=== PATIENT | male | born 1955 | race Caucasian/White ===

== ENCOUNTER 2025-05-26 09:30 | Inpatient (IN) | payer OTHER ==
[2025-05-19 11:02] LABS: MEAN PLATELET VOLUME 7.9 FL (7.4-10.4); PRE OP HEMATOCRIT 33.3 % (42.0-52.0); PRE OP PLATELET COUNT 220 X10'3 (140-440); PRE OP WHITE BLOOD COUNT 5.6 10'3 (4.8-10.8); RED CELL DISTRIBUTION WIDTH 13.9 % (11.5-14.5)
[2025-05-19 11:04] LABS: PRE OP HEMOGLOBIN 11.0 g/dL (14.0-17.9)
[2025-05-19 11:31] LABS: CREATININE 1.36 MG/DL (0.60-1.10); PRE OP ALT 16 U/L (30-65); PRE OP ANION GAP 8 (8-16); PRE OP AST 14 U/L (10-37); PRE OP BILIRUB, TOTAL 0.4 MG/DL (0.0-1.0); PRE OP GLUCOSE 112 MG/DL (70-104); PRE OP POTASSIUM 4.5 MMOL/L (3.4-5.1); PRE OP SODIUM 142 MMOL/L (135-145); TOTAL CARBON DIOXIDE 25.9 MMOL/L (24-32); eGFR 52 ML/MIN
[~2025-05-26] VITALS: Ht 182.9 cm; Wt 114.1 kg
[2025-05-26] VITALS (17 sets, daily range): BP systolic 109–172; BP diastolic 51–87; PULSE 51–69; RESP 13–18; TEMP 97.7–98.6; O2SAT 90–100
[2025-05-26] MEDS: ceFAZolin 2gm/dext,iso 50mL 50 ML IV ONE (05:30)
[2025-05-26] MEDS: tranexamic acid 1gm/0.7% sal. 100 ML IV ONE (05:30)
[~2025-05-26 09:30] MED LIST: AMLO10TA13 PO; CARV6.253 PO; ISOS30TA84 PO; LEVO150C5 PO; METF-438 PO; PIOG30TA72 PO; ROSU20TA98 PO
[2025-05-26] MEDS: ringers solution, lacted 1,000 ML IV SCH (10:04)
[2025-05-26] MEDS: VANCOMYCIN/H2O 1.5g/300mL PB 300 ML IV ONE (10:05)
[2025-05-26] MEDS ORDERED: vancomycin 1,000mg inj ONE (11:05)
[2025-05-26] MEDS ORDERED: tetracaine 1% (10mg/ml) pres. free inj. ONE (12:35)
[2025-05-26] MEDS ORDERED: MIDAZolam 1mg/ml 10ml vial ONE (12:46)
[2025-05-26] MEDS ORDERED: fentaNYL/PF 50MCG/1 ML 2ML syringe ONE (12:46)
[2025-05-26] MEDS ORDERED: propofol 10mg/ml 20ml vial IV ONE (13:27)
[2025-05-26] MEDS ORDERED: ROPIVAcaine 0.2% (10 MG/5 ML) BOLUS INJECTION ADDCANAL PRN (13:45)
[2025-05-26] MEDS ORDERED: HYDROmorphone/PF 0.2 MG/ML SYRINGE IV PRN (13:45)
[2025-05-26] MEDS ORDERED: ringers solution, lacted 1,000 ML IV SCH (13:45)
[2025-05-26] MEDS ORDERED: labetalol 20mg/4ml (5mg/ml) syringe IV PRN (13:45)
[2025-05-26] MEDS ORDERED: ondansetron/PF 4mg/2ml inj IV PRN ×3 (13:45→19:20)
[2025-05-26] MEDS ORDERED: hydrALAZINE 20mg/ml inj. IV PRN (13:45)
[2025-05-26] MEDS ORDERED: ROPIVAcaine 0.5% (5mg/ml) 30ml vial ONE ×2 (16:01)
[2025-05-26] MEDS ORDERED: oxyCODONE IR 5mg (immed. release) tablet PO PRN (16:50)
[2025-05-26] MEDS ORDERED: bisacodyl 10mg suppository rectal RC PRN (16:50)
[2025-05-26] MEDS ORDERED: HYDROmorphone inj. 0.5 MG/0.5 ML DISP.SYRIN IV PRN (16:50)
[2025-05-26] MEDS ORDERED: magnesium hydroxide 30ml (MOM) UD suspension PO PRN ×2 (16:50→19:20)
[2025-05-26] MEDS ORDERED: PCA WASTE DOCUMENTATION 1 MG ML MC SCH (16:50)
[2025-05-26] MEDS ORDERED: HYDROmorph/NS 0.2 mg/ml PCA 100 ML IV SCH ×2 (17:00→17:53)
[2025-05-26] MEDS: ROPIVAcaine 0.2%/PF PUMP/bolus 545 ML ADDCANAL SCH (17:07)
--- NOTE | 2025-05-26 17:07 | OPERATIVE REPORT ---
Operative Report Providers to CC ~ Date of Procedure: May 26, 2025 Pre-Operative Diagnosis: Primary osteoarthritis left knee Post-Operative Diagnosis SAME as PRE-Op Procedure Performed Left total knee arthroplasty hybrid fixated tibial component with cement Press- Fit femur cement fixation of the patella Surgeon: Karly Horta MD Edging Machine Catcher Dr. Salas Law MD Anesthesiologist: Tavon Swenson Type of Anesthesia: Other (Adductor canal block and I pack block), Spinal Findings: Severe grade 4 degenerative changes tricompartmental Complications None Prosthetics\Implants used: The pew knee system attune femoral for code cruciate retaining size nine. Attune patella size 38 medialized anatomic. Attune tibial base plate fixed bearing size nine cemented with PMMA antibiotic. Attune tibial insert medial stabilize size nine 10 mm thick. 1 g of vancomycin powder Estimated Blood Loss: 200-300 mL Specimen Removed: Degenerative bone meniscal and cruciate tissues Description of Procedure: This patient was taken to the operating room after I obtained informed consent at the [facility] holding room. I discussed with this patient previously as well as perioperatively the indications risks benefits limitations potential complications of the surgery to his understanding and agreement. I signed his left knee and is eager to proceed with surgery. He was given intravenous antibiotics for prophylaxis per protocol. Once in the operating room he was given a spinal anesthetic by anesthesiologist then transferred once this had been completed to the operating room table and placed in a supine position. His right leg was placed in an SCD devices left leg was placed in a well-padded upper thigh tourniquet and prepped and draped in usual sterile orthopaedic fashion. Esmarch was placed and I and pedal leg amaro was used tourniquet was insufflated and the case was begun. The knee was wrapped in Ioban skin protection. Anterior incision measured approximately 7-8 inches medial parapatellar approach was accomplished without difficulty to immobilize the knee this was then inverted and found to have a severe grade 4 degenerative changes of the articular surfaces of the patella. An osteotomy using a freehand technique was used to remove the amount of articular cartilage and thickness to be equal to the implant. Once this was accomplished in his patellar skin was placed over this to protect the patellar surface and subluxed laterally allowing the knee to be open to flexion to expose the femoral condyles. The ortho aligned system was used to aligned the knee to neutral position extension flexion was checked with a tension diameter and found to be equal to the extension gap of 10 mm trial components were now placed into the knee the knee was sized to a size nine on the femoral size and on the tibial side trial components fit nicely in the new stable throughout a full range of motion with the patella tracking centrally. The tibial component was now prepared with a for the keel and cemented into place allowed to fixate for 15 minutes before moving to the femoral component. Femoral component was Press-Fit component this was impacted into place and found to be quite stable. Patellar component was now cement cemented into place aligned 15 minutes to have this cure and definitive 10 mm polyethylene insert was placed in the knee after meticulous care was used to remove any and all excess cement and make sure there was no soft tissue entrapment on the tibial surface. The knee was taken through a range of motion and found to be stable in full extension and flexion. Tourniquet was now released hemostasis was achieved with electrocautery which was also done during the approach a medium size Hemovac drain was placed in the lateral gutter exited out proximally and laterally to close suction thrombin spray was used to assist with hemostasis and then the vancomycin powder was placed in the knee for prophylaxis. Medial parapatellar approach was closed with interrupted sutures simple and [id number] sutures of 2. FiberWire. Subcuticular closure was accomplished with 2-0 Vicryl interrupted skin was closed with skin yamilex silver dressing was applied island dressing was applied after that. The patient was now handed over to the anesthesiologist for a IPAP block and a adductor canal block with on Q pump. Patient was then transferred to the recovery room in stable condition good distal pulses had returned to the extremity and good capillary refill to the toes. There were no apparent perioperative complications Counts repoted as correct: Yes KARLY HORTA MD May 26, 2025 17:07
[2025-05-26] MEDS: HYDROmorphone/PF 0.2 MG/ML SYRINGE IV PRN (17:19)
[2025-05-26] MEDS: morphine 4 MG/ML inj SYRINge IV PRN (17:38)
[2025-05-26] MEDS: potassium Cl 20mEq in NS 1,000 ML IV SCH (18:49)
[2025-05-26] MEDS ORDERED: potassium Cl 20 mEq SR tablet PO PRN ×2 (19:20)
[2025-05-26] MEDS ORDERED: mag hydrox/Alum hydrox/simeth 30ml oral suspension PO PRN (19:20)
[2025-05-26] MEDS ORDERED: magnesium sulf-water 2g/50mL 50 ML IV PRN (19:20)
[2025-05-26] MEDS ORDERED: magnesium Cl slow-release 64mg tablet PO PRN (19:20)
[2025-05-26] MEDS ORDERED: magnesium sulf-water 4G/100mL 100 ML IV PRN (19:20)
[2025-05-26] MEDS ORDERED: potassium Cl 40MEQ/1/2NS 520ml 520 ML IV PRN (19:20)
[2025-05-26] MEDS: tranexamic acid inj. 1,140 MG in normal saline 100ml IV soln 88.6 ML IV ONE (19:38)
--- NOTE | 2025-05-26 19:39 | CONSULTATION REPORT - RESIDENT ---
Consult Providers to CC Resident Creating Document: GLYNNJAKOB RES History of Present Illness Reason for Admit\Complaint: Postop management History of Present Illness This is a 70-year-old male with a history of hypertension, diabetes, hypothyroidism, hyperlipidemia, obstructive sleep apnea, CAD s/p stent placement, osteoarthritis was admitted by Dr. Remy for elective left total knee arthroplasty. Patient postoperative course was uncomplicated and patient is hemodynamically stable. He complains of pain 6/10, currently being managed with morphine, Dilaudid and Percocet. He denies any other complaints. He takes amlodipine, carvedilol, levothyroxine, metformin, pioglitazone, rosuvastatin at home. Ordered repeat labs and restarted home medications. Allergies: Coded Allergies: No Known Allergies (Unverified , 05/19/25) Home Medications Home Medications Active Reported Isosorbide Mononitrate Er (Isosorbide Mononitrate) 30 Mg Tab.er.24h 1 Tab PO QAM Metformin HCl 1,000 Mg Tablet 1 Tab PO Q12H 30 Days Carvedilol 6.25 Mg Tablet 1 Tab PO Q12H 30 Days Pioglitazone (Pioglitazone Hcl) 30 Mg Tablet 1 Tab PO DAILY 30 Days Rosuvastatin Calcium 20 Mg Tablet 1 Tab PO HS 30 Days Amlodipine Besylate 10 Mg Tablet 1 Tab PO HS 30 Days Levothyroxine (Levothyroxine Sodium) 150 Mcg Capsule 1 Cap PO DAILY 30 Days Past Medical History Past Medical History hypertension, diabetes, hypothyroidism, hyperlipidemia, obstructive sleep apnea, CAD s/p stent placement, osteoarthritis Past Surgical History Surgical History Comment Orthopedic surgeries ROS ROS Reviewed in full and negative except for the pertinent positives in HPI Exam Vitals: Vital Signs Date Time Temp Pulse Resp B/P (MAP) Pulse Ox O2 Delivery O2 Flow Rate FiO2 05/26/25 19:05 14 05/26/25 18:00 53 109/61 (77) 94 Room Air 0.0 05/26/25 17:00 97.9 General: General: Awake and Alert, no acute distress. HEENT: Conjunctiva pink, Sclera clear, Mucus Membranes moist Neck: Supple without masses and tenderness. Resp: Unlabored. Equal breath sounds bilaterally. Heart: Regular rhythm, normal S1 and S2, no rub, murmur or gallop, muffled heart sounds. Abdomen: Soft and non tender no organomegaly. Normal bowel sounds x4 quadrant normoactive. No guarding or rigidity. Extremities: Left knee covered with dressing. no swelling, nontender. No cyanosis,clubbing or edema. LIQUOR RECTIFIER: No gross motor or sensory abnormalities. Skin: Warm and Dry. Additional Plan Left knee osteoarthritis severe grade 4 degenerative changes S/p left total knee arthroplasty Follow up with repeat CBC, CMP. Estimated blood loss was 300 mL. Currently on IV vancomycin b.i.d. and cefazolin t.i.d. scheduled Pain management with celecoxib, morphine, Dilaudid, Percocet as needed. Laxatives for constipation as needed Continue wound care Regular diet Physical therapy with non weight-bearing precautions Hypertension Type 2 diabetes Hyperlipidemia CAD s/p stent placement Obstructive sleep apnea Continue home medications rosuvastatin HS, metformin b.i.d., pioglitazone, levothyroxine, amlodipine, isosorbide mononitrate, carvedilol 6.25 mg b.i.d.. Code Status: Full code DVT Prophylaxis: Lovenox Analgesia/Sedation: Percocet, morphine p.r.n. Lines/Tubes: PIV Gi Prophylaxis: None Nutrition: Regular diet PT: Yes Prognosis: Fair Disposition: Continue care in ortho floor Jakob Bee MD Internal Medicine Resident PGY-2 Patient seen and evaluated with HIPPA compliant AV device Agree with the plan as discussed with the resident Tomi Segal MD Date of Service: May 26, 2025 Billing Provider: TOMI SEGAL MD, DEEPIKA BANDI, RES May 26, 2025 19:39 TOMI SEGAL MD May 27, 2025 03:12
--- NOTE | 2025-05-26 19:41 | RADIOLOGY REPORT ---
EXAM: DI KNEE LIMITED (AP/LAT) CLINICAL HISTORY: Postop LEFT KNEE COMPARISON: None TECHNIQUE: DI KNEE LIMITED (AP/LAT) Findings/Impression: 2 views of the left knee. There is no evidence of an acute fracture, dislocation, blastic, or lytic lesions. Left total knee arthroplasty with postsurgical changes.
[2025-05-26] MEDS: K and/or MAG REPLACEMENT MC SCH (20:00)
[2025-05-26 20:43] LABS: APTT 27 SECONDS (22-32); INR 1.1 INR
[2025-05-26 20:51] LABS: CREATININE 1.02 MG/DL (0.60-1.10); PRO BRAIN NATRIURETIC PEPTIDE 568 PG/ML (0-125); TOTAL CARBON DIOXIDE 23.6 MMOL/L (24-32); eCRCL 73 ML/MIN; eGFR 72 ML/MIN
[2025-05-26 21:05] LABS: MEAN PLATELET VOLUME 7.9 FL (7.4-10.4); RED CELL DISTRIBUTION WIDTH 13.0 % (11.5-14.5)
[2025-05-26] MEDS: vancomycin/NS 1 GM ADD-VANTAGE 250 ML IV SCH (21:43)
[2025-05-26] MEDS: carvedilol 6.25mg tablet PO SCH (21:45)
[2025-05-26] MEDS: docusate sod 100mg capsule PO SCH (21:45)
[2025-05-26] MEDS: ceFAZolin/D5W- 1GM premix 50 ML IV SCH (23:49)
[2025-05-27] MEDS: oxyCODONE IR 5mg (immed. release) tablet PO PRN (04:57)
[2025-05-27 05:26] LABS: MEAN PLATELET VOLUME 8.7 FL (7.4-10.4); RED CELL DISTRIBUTION WIDTH 13.0 % (11.5-14.5)
[2025-05-27 05:42] LABS: CREATININE 1.16 MG/DL (0.60-1.10); TOTAL CARBON DIOXIDE 24.1 MMOL/L (24-32); eCRCL 64 ML/MIN; eGFR 62 ML/MIN
[2025-05-27 06:00] VITALS: BP 125/58; PULSE 61; RESP 16; TEMP 97.3; O2SAT 95
[2025-05-27] MEDS: levoTHYROXINE 100mcg tablet PO SCH (08:47)
[2025-05-27] MEDS: isosorbide mononitrate 30mg tab.SR.24H PO SCH (08:47)
[2025-05-27] MEDS: levoTHYROXINE 25mcg tablet PO SCH (08:47)
[2025-05-27] MEDS: enoxaparin 40mg/0.4ml syringe SQ SCH (08:48)
--- NOTE | 2025-05-27 13:42 | PROGRESS NOTE ---
Daily Progress Note Providers to CC ~ Antibiotic Timeout Antibiotic Ordered?: Yes Subjective Chief complaint severe pain When I offered the patient pain medications he states that is just a weakness a signs of the body is trying to show you he can not give in to bodies weaknesses. He wants me to make the pain go away without pain medications. Review of systems negative for all 10 systems reviewed Objective Vital Signs Date Time Temp Pulse Resp B/P (MAP) Pulse Ox O2 Delivery O2 Flow Rate FiO2 05/27/25 05:57 16 05/26/25 22:00 97.7 69 146/63 (90) 90 Room Air 05/26/25 18:00 0.0 Result Diagram: 05/27/25 0450 05/27/25 0450 General: Awake and Alert, no acute distress. HEENT: Conjunctiva pink, Sclera clear, Mucus Membranes moist Resp: Unlabored. Equal breath sounds bilaterally. Heart: Regular rhythm, normal S1 and S2, no rub, murmur or gallop, muffled heart sounds. Abdomen: Soft and non tender no organomegaly. Normal bowel sounds x4 quadrant normoactive. No guarding or rigidity. Extremities: Left knee covered with dressing. no swelling, nontender. No cyanosis,clubbing or edema. Coagulation Studies Laboratory Tests Test 05/26/25 20:22 Prothrombin Time 11.3 SECONDS (9.0-12.0) INR International Normalized Ratio 1.1 INR Activated Partial Thromboplast Time 27 SECONDS (22-32) Coagulation Comments Problem\Assessment\Plan Left knee osteoarthritis severe grade 4 degenerative changes S/p left total knee arthroplasty Follow up with repeat CBC, CMP. Estimated blood loss was 300 mL. Currently on IV vancomycin b.i.d. and cefazolin t.i.d. scheduled Pain management with celecoxib, morphine, Dilaudid, Percocet as needed. Laxatives for constipation as needed Continue wound care Regular diet Physical therapy with non weight-bearing precautions Hypertension Type 2 diabetes Hyperlipidemia CAD s/p stent placement Obstructive sleep apnea Continue home medications rosuvastatin HS, metformin b.i.d., pioglitazone, levothyroxine, amlodipine, isosorbide mononitrate, carvedilol 6.25 mg b.i.d.. Code Status: Full code DVT Prophylaxis: Lovenox Analgesia/Sedation: Percocet, morphine p.r.n. Lines/Tubes: PIV Gi Prophylaxis: None Nutrition: Regular diet PT: Yes Prognosis: Fair Disposition: Continue care in ortho floor Date of Service: May 27, 2025 Billing Provider: TAMIR BALDERRAMA MD Common Visit Codes: [id number] INP/OBS CARE(HIGH) TAMIR BALDERRAMA MD May 27, 2025 13:42
[2025-05-27] MEDS: ROPIVAcaine inj 200 MG, epiNEPHrine inj 0.6 MG, morphine 10mg/ml inj. 5 MG in normal sa... IU ONE (16:53)
[2025-05-27] MEDS: tranexamic acid inj. 1,140 MG in normal saline 100ml IV soln 88.6 ML IV ONE (16:58)
[2025-05-27 18:30] VITALS: BP 142/65; PULSE 72; RESP 16; TEMP 98.9; O2SAT 94
[2025-05-27 22:00] VITALS: BP 143/56; PULSE 70; RESP 18; TEMP 98.8; O2SAT 95
[2025-05-28 05:26] LABS: MEAN PLATELET VOLUME 8.6 FL (7.4-10.4); RED CELL DISTRIBUTION WIDTH 13.0 % (11.5-14.5)
[2025-05-28 05:47] LABS: CREATININE 1.26 MG/DL (0.60-1.10); TOTAL CARBON DIOXIDE 22.9 MMOL/L (24-32); eCRCL 59 ML/MIN; eGFR 56 ML/MIN
[2025-05-28 06:00] VITALS: BP 109/59; PULSE 53; RESP 18; TEMP 98; O2SAT 97
--- NOTE | 2025-05-28 08:39 | PROGRESS NOTE ---
Daily Progress Note Providers to CC ~ Antibiotic Timeout Antibiotic Ordered?: Yes Subjective Chief complaint none did not need anymore pain medications I like the pump it is okay Objective Vital Signs Date Time Temp Pulse Resp B/P (MAP) Pulse Ox O2 Delivery O2 Flow Rate FiO2 05/27/25 22:00 98.8 70 18 143/56 (85) 95 Room Air 05/27/25 08:40 0.0 Result Diagram: 05/28/2545705/28/25457 General: Awake and Alert, no acute distress. HEENT: Conjunctiva pink, Sclera clear, Mucus Membranes moist Resp: Unlabored. Equal breath sounds bilaterally. Heart: Regular rhythm, normal S1 and S2, no rub, murmur or gallop, muffled heart sounds. Abdomen: Soft and non tender no organomegaly. Normal bowel sounds x4 quadrant normoactive. No guarding or rigidity. Extremities: Left knee covered with dressing. no swelling, nontender. No cyanosis,clubbing or edema. Coagulation Studies Laboratory Tests Test 05/26/25 20:22 Prothrombin Time 11.3 SECONDS (9.0-12.0) INR International Normalized Ratio 1.1 INR Activated Partial Thromboplast Time 27 SECONDS (22-32) Coagulation Comments Problem\Assessment\Plan Left knee osteoarthritis severe grade 4 degenerative changes S/p left total knee arthroplasty Follow up with repeat CBC, CMP. Estimated blood loss was 300 mL. Currently on IV vancomycin b.i.d. and cefazolin t.i.d. scheduled Pain management with celecoxib, morphine, Dilaudid, Percocet as needed. Laxatives for constipation as needed Continue wound care Regular diet Physical therapy with non weight-bearing precautions Hypertension Type 2 diabetes Hyperlipidemia CAD s/p stent placement Obstructive sleep apnea Continue home medications rosuvastatin HS, metformin b.i.d., pioglitazone, levothyroxine, amlodipine, isosorbide mononitrate, carvedilol 6.25 mg b.i.d.. Code Status: Full code DVT Prophylaxis: Lovenox Analgesia/Sedation: Percocet, morphine p.r.n. Lines/Tubes: PIV Gi Prophylaxis: None Nutrition: Regular diet PT: Yes Prognosis: Fair Disposition: Continue care in ortho floor Date of Service: May 28, 2025 Billing Provider: TAMIR BALDERRAMA MD Common Visit Codes: [id number] INP/OBS CARE(HIGH) TAMIR BALDERRAMA MD May 28, 2025 08:39
[2025-05-28 10:00] VITALS: BP 125/47; PULSE 62; RESP 18; TEMP 98.1; O2SAT 100
--- NOTE | 2025-05-28 14:28 | DISCHARGE SUMMARY-Residence ---
Discharge Summary Providers to CC Resident Creating Document: MOHAN RAMON RES ~ Discharge Summary Admission Diagnosis: Primary osteoarthritis left knee Hospital Course DATE OF ADMISSION: 05/26/2025 DATE OF DISCHARGE: 05/28/2025 Left knee x-ray: There is no evidence of an acute fracture, dislocation, blastic, or lytic lesions. Left total knee arthroplasty with postsurgical changes. Laboratory Tests Test 05/26/25 16:51 05/26/25 18:01 05/26/25 20:22 05/26/25 21:00 Glucometer 69 mg/dl 89 mg/dl CBC Comment Prothrombin Time 11.3 SECONDS INR International Normalized Ratio 1.1 INR Activated Partial Thromboplast Time 27 SECONDS Coagulation Comments Sodium Level 139 MMOL/L Potassium Level 4.1 MMOL/L Chloride Level 107 MMOL/L Carbon Dioxide Level 23.6 MMOL/L Anion Gap 8 Blood Urea Nitrogen 14 MG/DL Creatinine 1.02 MG/DL Estimated GFR/1.73 m2 72 ML/MIN BUN/Creatinine Ratio 13.7 Glucose Level 125 MG/DL Calcium Level 9.1 MG/DL Total Bilirubin 0.4 MG/DL Aspartate Amino Transf (AST/SGOT) 14 U/L Alanine Aminotransferase (ALT/SGPT) 15 U/L Alkaline Phosphatase 45 IU/L Pro-B-Type Natriuretic Peptide 568 PG/ML Total Protein 6.6 G/DL Albumin 3.7 G/DL Globulin 2.9 G/DL Albumin/Globulin Ratio 1.3 Chemistry Comments White Blood Count 9.2 X10'3 Red Blood Count 3.50 X10'6 Hemoglobin 10.6 g/dl Hematocrit 31.5 % Mean Corpuscular Volume 89.9 FL Mean Corpuscular Hemoglobin 30.2 PG Mean Corpuscular Hemoglobin Concent 33.6 g/dL Red Cell Distribution Width 13.0 % Platelet Count 192 X10'3 Mean Platelet Volume 7.9 FL Neutrophils (%) (Auto) 74.6 % Lymphocytes (%) (Auto) 15.2 % Monocytes (%) (Auto) 7.2 % Eosinophils (%) (Auto) 2.5 % Basophils (%) (Auto) 0.5 % Neutrophils # (Auto) 6.9 X10'3 Lymphocytes # (Auto) 1.4 X10'3 Monocytes # (Auto) 0.7 X10'3 Eosinophils # (Auto) 0.2 X10'3 Basophils # (Auto) 0.0 X10'3 Test 05/26/25 21:25 05/27/25 04:50 05/27/25 07:19 05/27/25 12:25 Glucometer 147 mg/dl 119 mg/dl 176 mg/dl White Blood Count 7.1 X10'3 Red Blood Count 3.27 X10'6 Hemoglobin 9.9 g/dl Hematocrit 30.0 % Mean Corpuscular Volume 91.8 FL Mean Corpuscular Hemoglobin 30.2 PG Mean Corpuscular Hemoglobin Concent 32.9 g/dL Red Cell Distribution Width 13.0 % Platelet Count 180 X10'3 Mean Platelet Volume 8.7 FL Neutrophils (%) (Auto) 65.5 % Lymphocytes (%) (Auto) 21.4 % Monocytes (%) (Auto) 10.5 % Eosinophils (%) (Auto) 1.8 % Basophils (%) (Auto) 0.8 % Neutrophils # (Auto) 4.7 X10'3 Lymphocytes # (Auto) 1.5 X10'3 Monocytes # (Auto) 0.7 X10'3 Eosinophils # (Auto) 0.1 X10'3 Basophils # (Auto) 0.1 X10'3 CBC Comment Sodium Level 136 MMOL/L Potassium Level 4.2 MMOL/L Chloride Level 106 MMOL/L Carbon Dioxide Level 24.1 MMOL/L Anion Gap 6 Blood Urea Nitrogen 14 MG/DL Creatinine 1.16 MG/DL Estimated GFR/1.73 m2 62 ML/MIN BUN/Creatinine Ratio 12.1 Glucose Level 135 MG/DL Calcium Level 8.3 MG/DL Magnesium Level 1.6 MG/DL Total Bilirubin 0.4 MG/DL Aspartate Amino Transf (AST/SGOT) 11 U/L Alanine Aminotransferase (ALT/SGPT) 15 U/L Alkaline Phosphatase 40 IU/L Total Protein 5.7 G/DL Albumin 3.0 G/DL Globulin 2.7 G/DL Albumin/Globulin Ratio 1.1 Chemistry Comments Test 05/27/25 17:45 05/27/25 21:13 05/28/25 04:58 05/28/25 07:49 Glucometer 130 mg/dl 137 mg/dl 94 mg/dl White Blood Count 8.8 X10'3 Red Blood Count 3.01 X10'6 Hemoglobin 9.1 g/dl Hematocrit 27.2 % Mean Corpuscular Volume 90.5 FL Mean Corpuscular Hemoglobin 30.2 PG Mean Corpuscular Hemoglobin Concent 33.4 g/dL Red Cell Distribution Width 13.0 % Platelet Count 157 X10'3 Mean Platelet Volume 8.6 FL Neutrophils (%) (Auto) 56.3 % Lymphocytes (%) (Auto) 27.3 % Monocytes (%) (Auto) 14.6 % Eosinophils (%) (Auto) 1.4 % Basophils (%) (Auto) 0.4 % Neutrophils # (Auto) 4.9 X10'3 Lymphocytes # (Auto) 2.4 X10'3 Monocytes # (Auto) 1.3 X10'3 Eosinophils # (Auto) 0.1 X10'3 Basophils # (Auto) 0.0 X10'3 CBC Comment Sodium Level 137 MMOL/L Potassium Level 4.2 MMOL/L Chloride Level 107 MMOL/L Carbon Dioxide Level 22.9 MMOL/L Anion Gap 7 Blood Urea Nitrogen 17 MG/DL Creatinine 1.26 MG/DL Estimated GFR/1.73 m2 56 ML/MIN BUN/Creatinine Ratio 13.5 Glucose Level 110 MG/DL Calcium Level 8.0 MG/DL Magnesium Level 1.5 MG/DL Total Bilirubin 0.5 MG/DL Aspartate Amino Transf (AST/SGOT) 9 U/L Alanine Aminotransferase (ALT/SGPT) 10 U/L Alkaline Phosphatase 36 IU/L Total Protein 5.3 G/DL Albumin 2.6 G/DL Globulin 2.7 G/DL Albumin/Globulin Ratio 1.0 Chemistry Comments Test 05/28/25 12:33 Glucometer 126 mg/dl Discharge Diagnosis\Comment: S/p left total knee arthroplasty Operations\Procedures: left total knee arthroplasty Consultants: Dr. Remy Complications: None Condition on DC: Stable Continued Medications: Amlodipine Besylate (Amlodipine Besylate) 10 Mg Tablet 1 TAB PO HS for 30 Days, #30 TAB 0 Refills Carvedilol (Carvedilol) 6.25 Mg Tablet 1 TAB PO Q12H for 30 Days, #60 TAB 0 Refills Isosorbide Mononitrate (Isosorbide Mononitrate Er) 30 Mg Tab.er.24h 1 TAB PO QAM Levothyroxine Sodium (Levothyroxine) 150 Mcg Capsule 1 CAP PO DAILY for 30 Days, #30 CAP 0 Refills Metformin HCl (Metformin HCl) 1,000 Mg Tablet 1 TAB PO Q12H for 30 Days, #60 TAB 0 Refills Pioglitazone Hcl (Pioglitazone) 30 Mg Tablet 1 TAB PO DAILY for 30 Days, #30 TAB 0 Refills Rosuvastatin Calcium (Rosuvastatin Calcium) 20 Mg Tablet 1 TAB PO HS for 30 Days, #30 TAB 0 Refills Discharge Summary: This is a 70-year-old male with a history of hypertension, diabetes, hypothyroidism, hyperlipidemia, obstructive sleep apnea, CAD s/p stent placement, osteoarthritis was admitted by Dr. Remy for elective left total knee arthroplasty. Patient postoperative course was uncomplicated and patient is hemodynamically stable. He was complaining of pain 6/10, being managed with morphine, Dilaudid and Percocet. He denies any other complaints. He takes amlodipine, carvedilol, levothyroxine, metformin, pioglitazone, rosuvastatin at home. Patient underwent left total knee arthroplasty without complication. He was had physical therapist evaluation who cleared him to go home. Patient today complains of mild pain in left knee, but no other complaints. He is medically stable to be discharged. Discharge physical exam General: Awake and Alert, no acute distress. HEENT: Conjunctiva pink, Sclera clear, Mucus Membranes moist Resp: Unlabored. Equal breath sounds bilaterally. Heart: Regular rhythm, normal S1 and S2, no rub, murmur or gallop, muffled heart sounds. Abdomen: Soft and non tender no organomegaly. Normal bowel sounds x4 quadrant normoactive. No guarding or rigidity. Extremities: Left knee covered with dressing. no swelling, nontender. No cyanosis,clubbing or edema. Discharge course Follow-up with Dr. Remy within two weeks Follow up with primary care physician Continue physical therapy Continue home medication Convinced in the ED in case of severe pain, bleeding or any concerning symptoms. Discharge was delayed from 18-19 secondary to the patient's pain and the patient's thinking that she was unable to care for him today morning he was discharged prior to us rounding on him. *Problems/Diagnosis: (1) Osteoarthritis of left knee Status: Chronic Total Time Spent on D/C: Up to 30 Minutes Date of Service: May 29, 2025 Billing Provider: TAMIR BALDERRAMA MD Common Visit Codes: [id number] DISCH DAY >30min MOHAN RAMON, RES May 28, 2025 14:26 TAMIR BALDERRAMA MD May 29, 2025 12:18
[2025-05-28 18:00] VITALS: BP 132/53; PULSE 71; RESP 16; TEMP 98; O2SAT 99
[2025-05-28 22:00] VITALS: BP 142/59; PULSE 71; RESP 16; TEMP 98.4; O2SAT 97
[2025-05-29 05:57] LABS: MEAN PLATELET VOLUME 8.6 FL (7.4-10.4); RED CELL DISTRIBUTION WIDTH 13.0 % (11.5-14.5)
[2025-05-29 06:00] VITALS: BP 114/53; PULSE 62; RESP 17; TEMP 98.4; O2SAT 99
[2025-05-29 06:20] LABS: CREATININE 1.24 MG/DL (0.60-1.10); TOTAL CARBON DIOXIDE 22.5 MMOL/L (24-32); eCRCL 60 ML/MIN; eGFR 57 ML/MIN
[2025-05-29 10:00] VITALS: BP 107/51; PULSE 68; RESP 18; TEMP 97.8; O2SAT 96
--- NOTE | 2025-05-29 15:14 | PROGRESS NOTE- Residence ---
Progress Note - Resident Providers to CC Resident Creating Document: CALVIN OROZCO RES ~ Antibiotic Timeout Antibiotic Ordered?: No Subjective Patient was seen and examined at bedside. He was initially discharged yesterday, however, he remained in the hospital for one more day. Refer to discharge summary formulated yesterday; his clinical condition has remained unchanged; stable. Objective Vital Signs Date Time Temp Pulse Resp B/P (MAP) Pulse Ox O2 Delivery O2 Flow Rate FiO2 05/29/25 10:00 97.8 68 18 107/51 (69) 96 Room Air 05/27/25 08:40 0.0 General: Awake and Alert, no acute distress. HEENT: Conjunctiva pink, Sclera clear, Mucus Membranes moist Resp: Unlabored. Equal breath sounds bilaterally. Heart: Regular rhythm, normal S1 and S2, no rub, murmur or gallop, muffled heart sounds. Abdomen: Soft and non tender no organomegaly. Normal bowel sounds x4 quadrant normoactive. No guarding or rigidity. Extremities: Left knee covered with dressing. no swelling, nontender. No cyanosis,clubbing or edema. Result Diagram: 05/29/2527 05/29/2527 Coagulation Studies Laboratory Tests Test 05/26/25 20:22 Prothrombin Time 11.3 SECONDS (9.0-12.0) INR International Normalized Ratio 1.1 INR Activated Partial Thromboplast Time 27 SECONDS (22-32) Coagulation Comments Advance Care Planning Advanced Care plannin - 30 Minutes Assessment Assessment Left knee osteoarthritis severe grade 4 degenerative changes S/p left total knee arthroplasty Follow up with repeat CBC, CMP. Estimated blood loss was 300 mL. Currently on IV vancomycin b.i.d. and cefazolin t.i.d. scheduled Pain management with celecoxib, morphine, Dilaudid, Percocet as needed. Laxatives for constipation as needed Continue wound care Regular diet Physical therapy with non weight-bearing precautions Hypertension Type 2 diabetes Hyperlipidemia CAD s/p stent placement Obstructive sleep apnea Continue home medications rosuvastatin HS, metformin b.i.d., pioglitazone, levothyroxine, amlodipine, isosorbide mononitrate, carvedilol 6.25 mg b.i.d.. Code Status: Full code DVT Prophylaxis: Lovenox Analgesia/Sedation: Percocet, morphine p.r.n. Lines/Tubes: PIV Gi Prophylaxis: None Nutrition: Regular diet PT: Yes Prognosis: Fair Disposition: Continue care in ortho floor Seen and examined at bedside with resident agree with the above Date of Service: May 29, 2025 Billing Provider: TAMIR BALDERRAMA MD Common Visit Codes: [id number] INP/OBS CARE(HIGH) CALVIN OROZCO, RES May 29, 2025 15:14 TAMIR BALDERRAMA MD May 31, 2025 10:18
== END 2025-05-29 11:50 | disposition home or self-care (01) | DRG 470 ==
LOC: PAS IN 09:30 → ORTHO 4S 18:00
PROVIDERS: ADMIT Orthopaedic Surgery; ATTEND Internal Medicine
PROC: 3E0T3BZ Introduction of Anesthetic Agent into Peripheral Nerves and Plexi, Percutaneous Approach (ICD-10-PCS; 2025-05-26)
PROC: 3E0U029 Introduction of Other Anti-infective into Joints, Open Approach (ICD-10-PCS; 2025-05-26)
PROC: 0SRD0JA Replacement of Left Knee Joint with Synthetic Substitute, Uncemented, Open Approach (ICD-10-PCS; principal; 2025-05-26 12:41)
PROC: 5A09357 Assistance with Respiratory Ventilation, Less than 24 Consecutive Hours, Continuous Positive Airway Pressure (ICD-10-PCS; 2025-05-29)
DX: M17.12 Unilateral primary osteoarthritis, left knee (principal); I10 Essential (primary) hypertension; E11.9 Type 2 diabetes mellitus without complications; E03.9 Hypothyroidism, unspecified; I25.10 Atherosclerotic heart disease of native coronary artery without angina pectoris; G47.33 Obstructive sleep apnea (adult) (pediatric); Z95.5 Presence of coronary angioplasty implant and graft; Z79.899 Other long term (current) drug therapy; Z79.84 Long term (current) use of oral hypoglycemic drugs
CPT/HCPCS: 36415; 73560; 80053; 82948; 83036; 83735; 83880; 84443; 85025; 85610; 85730; 87081; 92508; 92616; 97110; 97116; 97161; 97530; A4215; A6253; A6258; A6446; A6449; A6454; A7000; C1713; C1758; C1776; C9250; G0378; J0690; J1171; J1650; J2250; J2270; J2704; J2795; J3010; J3373; J3375; J3480; J3490; J7030; J7120

== ENCOUNTER 2025-09-06 08:57 | Outpatient (CLI) | payer MEDICARE, BC ==
--- NOTE | 2025-09-06 10:46 | RADIOLOGY REPORT ---
ULTRASOUND OF SCROTUM AND CONTENTS. INDICATION: SCROTAL SWELLING COMPARISON: None TECHNIQUE: Multiple real-time grayscale sonographic and color and duplex Doppler images of the scrotum and its contents were obtained. FINDINGS: The right testicle measures 3.5 x 2.4 x 2.3 cm. The left testicle measures 3.5 x 2.0 x 2.4 cm. There are 2 hypoechoic rounded vascularized masses within the right testicle measuring 1.9 x 1.4 cm and 1.1 x 1.0 cm. Few bilateral epididymal cysts measuring 0.2 cm in the right and 0.9 cm on the left. Subsequent color and duplex Doppler interrogation of the testes demonstrated symmetric normal vascular flow to both testicles. Small right-sided hydrocele. IMPRESSION: Two hypoechoic vascularized masses within the right testicle concerning for either metastatic disease/ lymphoma or a primary testicular neoplasm.
== END 2025-09-06 23:59 | disposition home or self-care (01) ==
LOC: RAD 08:57
PROVIDERS: ATTEND Family Medicine
DX: N43.3 Hydrocele, unspecified (principal); N50.89 Other specified disorders of the male genital organs; N50.3 Cyst of epididymis; R19.00 Intra-abdominal and pelvic swelling, mass and lump, unspecified site
CPT/HCPCS: 76870; 93976